=== PATIENT | female | born 1990 | race American Indian/Alaskan Native ===

== ENCOUNTER 2017-04-11 12:38 | Emergency (ER) | payer SELFPAY ==
[2017-04-11 12:58] VITALS: BP 103/68
[2017-04-11] MEDS ORDERED: BOOSTRIX IM ONE (13:38)
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
[2017-04-11] MEDS ORDERED: TRIPLE ANTIBIOTIC TP ONE (16:14)
== END 2017-04-11 16:27 | disposition home or self-care (01) ==
LOC: ED 12:38
DX: T25.211A Burn of second degree of right ankle, initial encounter (principal); N91.2 Amenorrhea, unspecified; F17.200 Nicotine dependence, unspecified, uncomplicated; X08.8XXA Exposure to other specified smoke, fire and flames, initial encounter; Y93.89 Activity, other specified; Y99.9 Unspecified external cause status; Y92.89 Other specified places as the place of occurrence of the external cause
CPT/HCPCS: 81025; 90471; 90715; A6250